=== PATIENT | female | born 1975 | race Caucasian/White ===

== ENCOUNTER → 2020-06-08 14:26 | Outpatient (BNVA) | payer OTHER, SELFPAY | PROVIDERS: Visit Provider Obstetrics & Gynecology | DX: D25.9 Leiomyoma of uterus, unspecified (principal) | CPT/HCPCS: 99202 ==

== ENCOUNTER 2020-06-22 13:30 | Outpatient (REF) | payer OTHER, SELFPAY ==
--- NOTE | 2020-06-22 13:35 | US_ITS ---
EXAMINATION: US PELVIS COMPLETE US TRANSVAGINAL CLINICAL INFORMATION: Pelvic and perineal pain. COMPARISON: None TECHNIQUE: Transabdominal and transvaginal ultrasound of the pelvis is performed. FINDINGS: The uterus is anteverted and measures 17.8 cm in length, 6.7 cm AP and 11.0 cm in transverse dimension. There are multiple hypoechoic lesions. 1. A 5.2 x 5.0 x 5.0 cm lesion in the left fundus. This fibroid is slightly hypervascular. 2. A 2.3 x 2.2 x 2.9 cm lesion in the center of the fundus. 3. Lesion in the right of the fundus measures 2.3 x 2.2 x 1.5 cm. The endometrial thickness measures 1.0 cm. The endometrium is slightly distorted from the fibroids. Imaging through the cervix reveals several small nabothian cysts. Right ovary measures 1.4 x 1.8 x 1.3 cm and volume 1.7 mL. It appears unremarkable. Left ovary is not seen. There is no free fluid in cul-de-sac. US/US transvaginal IMPRESSION: At least 3 uterine fibroids. The largest fibroid in the left fundus is hypervascular. There are several nabothian cysts in the cervix. The right ovary is unremarkable. The left ovary is not seen.
--- NOTE | 2020-06-22 13:35 | US_ITS ---
EXAMINATION: US PELVIS COMPLETE US TRANSVAGINAL CLINICAL INFORMATION: Pelvic and perineal pain. COMPARISON: None TECHNIQUE: Transabdominal and transvaginal ultrasound of the pelvis is performed. FINDINGS: The uterus is anteverted and measures 17.8 cm in length, 6.7 cm AP and 11.0 cm in transverse dimension. There are multiple hypoechoic lesions. 1. A 5.2 x 5.0 x 5.0 cm lesion in the left fundus. This fibroid is slightly hypervascular. 2. A 2.3 x 2.2 x 2.9 cm lesion in the center of the fundus. 3. Lesion in the right of the fundus measures 2.3 x 2.2 x 1.5 cm. The endometrial thickness measures 1.0 cm. The endometrium is slightly distorted from the fibroids. Imaging through the cervix reveals several small nabothian cysts. Right ovary measures 1.4 x 1.8 x 1.3 cm and volume 1.7 mL. It appears unremarkable. Left ovary is not seen. There is no free fluid in cul-de-sac. US/US pelvic complete IMPRESSION: At least 3 uterine fibroids. The largest fibroid in the left fundus is hypervascular. There are several nabothian cysts in the cervix. The right ovary is unremarkable. The left ovary is not seen.
== END 2020-06-22 13:31 | disposition home or self-care (01) ==
LOC: HO.US 13:30
PROVIDERS: PCP Internal Medicine; Visit Provider Obstetrics & Gynecology
DX: R10.2 Pelvic and perineal pain (principal); D25.9 Leiomyoma of uterus, unspecified
CPT/HCPCS: 76830; 76856

== ENCOUNTER → 2020-06-28 14:18 | Outpatient (BNVA) | payer OTHER, SELFPAY | PROVIDERS: PCP Internal Medicine; Visit Provider Obstetrics & Gynecology | DX: D25.9 Leiomyoma of uterus, unspecified (principal) | CPT/HCPCS: 99212 ==

== ENCOUNTER → 2020-07-12 13:17 | Outpatient (BNVA) | payer OTHER, SELFPAY | PROVIDERS: PCP Internal Medicine; Visit Provider Nurse Practitioner | DX: Z76.89 Persons encountering health services in other specified circumstances (principal) ==

== ENCOUNTER 2020-07-30 10:15 | Outpatient (REF) | payer OTHER, SELFPAY ==
[2020-07-30 11:19] LABS: Alanine Aminotransferase 22 U/L (0-31); Albumin Level 4.4 g/dL (3.5-5.0); Alkaline Phosphatase 57 U/L (39-117); Aspartate Amino Transferase 16 U/L (5-31); Bilirubin Direct 0.3 mg/dL (0.0-0.5); Bilirubin Total 0.7 mg/dL (0.0-1.0); Total Protein 6.6 g/dL (6.5-8.0)
[2020-07-30 11:23] LABS: Blood Urea Nitrogen 5 mg/dL (9-16); Estimated Glomerular Filt Rate > 60
[2020-07-30 11:45] LABS: HBS Num1 6.55 mIU/mL (0-7.99); HBc Num1 0.04 S/CO (0.00-0.79); HBsAGNum1 0.13 S/CO (0.00-0.99); Hepatitis A Antibody IgM 0.67 Index (0-0.79); Hepatitis B Core Antibody Nonreactive (Nonreactive); Hepatitis B Surface Antigen Negative (Negative); ~HepC Num1 0.06 S/CO (0.00-0.79); ~Hepatitis A Antibody IgM Nonreactive (Nonreactive); ~Hepatitis B Surface Antibody NONREACTIVE (Nonreactive); ~Hepatitis C Antibody Nonreactive (Nonreactive)
[2020-08-02 12:51] LABS: Alpha Fetoprotein 3.3 ng/mL
[2020-08-03 09:57] LABS: Mitochondrial Antibodies NEGATIVE (NEGATIVE)
[2020-08-04 23:36] LABS: Smooth Muscle Antibody <20 U (<20)
== END 2020-07-30 10:16 | disposition home or self-care (01) ==
LOC: HO.LAB 10:15
PROVIDERS: PCP Internal Medicine; Referring Provider Radiology Vascular & Interventional Radiology; Visit Provider Nurse Practitioner
DX: R79.89 Other specified abnormal findings of blood chemistry (principal); R94.4 Abnormal results of kidney function studies; K76.0 Fatty (change of) liver, not elsewhere classified
CPT/HCPCS: 36415; 80076; 82105; 82565; 84520; 86255; 86256; 86704; 86706; 86709; 86803; 87340

== ENCOUNTER 2020-08-02 08:33 | Outpatient (REF) | payer OTHER, SELFPAY ==
--- NOTE | 2020-08-02 08:38 | US_ITS ---
EXAMINATION: US ABDOMEN COMPLETE CLINICAL INFORMATION: Fatty (change of) liver, not elsewhere classified. COMPARISON: CT abdomen and pelvis with contrast dated 09/18/2019. Ultrasound abdomen complete dated 06/12/2019. TECHNIQUE: Real-time imaging of the abdominal viscera. FINDINGS: PANCREAS: Normal. ABDOMINAL AORTA: The proximal, mid, and distal segments are normal in caliber. INFERIOR VENA CAVA: Visualized portions are normal. LIVER: There is increased liver echogenicity. .The liver is normal in size. The liver contour is normal. No focal hepatic lesion. There is no intrahepatic biliary duct dilatation seen. GALLBLADDER: Normal. The gallbladder is physiologically distended without evidence of stones, sludge, polyps, wall thickening or pericholecystic fluid. COMMON BILE DUCT: Normal in caliber measuring 0.5 cm in diameter. RIGHT KIDNEY: Normal. No hydronephrosis. No renal calculi or focal parenchymal lesions. The kidney measures 11.9 cm in maximum dimension. LEFT KIDNEY: There are small anechoic cyst in the lower pole measuring 0.8 x 0.5 x 0.5 cm. No echogenic stones, caliectasis or hydronephrosis seen. No additional focal lesion seen. The kidney measures 11.4 cm in maximum dimension. SPLEEN: Normal. The spleen measures 11.9 cm in maximum dimension. FREE FLUID: None. US/US abdomen complete IMPRESSION: Small anechoic cyst lower pole left kidney. No echogenic stones or hydronephrosis. Mild hepatic steatosis without focal lesion. The rest of the abdominal ultrasound is unremarkable.
== END 2020-08-02 08:34 | disposition home or self-care (01) ==
LOC: HO.US 08:33
PROVIDERS: Visit Provider Nurse Practitioner
DX: K76.0 Fatty (change of) liver, not elsewhere classified (principal)
CPT/HCPCS: 76700

== ENCOUNTER 2020-08-27 06:33 | Day surgery (SDC) | payer OTHER, SELFPAY ==
--- NOTE | 2020-08-25 13:30 | P.CONAN_ITS ---
Documented by User: Makayla Mills 08/25/20 13:31 HPI - Anesthesia Eval Consult details Narrative: 45yo F for Upper Endoscopy [facility] Past Medical History Medical History Endometriosis Hx of concussion Renal cyst, left Uterine fibroid Family History Family History Father Diabetes Kidney failure Mother Cancer HTN (hypertension) Diabetes Paternal Aunt Stomach cancer Maternal Aunt Cancer Maternal Uncle Cancer Maternal Grandfather Cancer Maternal Grandmother HTN (hypertension) Surgical History Surgical History Hx of colonoscopy Social History Social History Alcohol intake: never Smoking Status: Never smoker Second Hand Smoke Exposure: Yes (secondhand exposure from grandfather when pt was younger) Use of substances other than those prescribed or required for medical reasons: No Advance Directives: No Advance Directives Information Provided: Yes Sexual orientation: Straight/Heterosexual Gender identity: female Meds Allergies Allergy/AdvReac Type Severity Reaction Status Date / Time No Known Allergies Allergy Verified 08/27/20 06:54 [No Known Allergies*] Home Medications Medication Instructions Recorded Confirmed Type dicyclomine 20 mg tablet 20 mg PO QID 07/12/20 07/12/20 History docusate sodium 100 mg capsule 100 mg PO DAILY 07/12/20 07/12/20 History magnesium oxide 500 mg capsule 500 mg PO BID 07/12/20 07/12/20 History Exam Exam Date and Time: August 25, 2020 1330 Assessment and Plan Assessment Anesthesia Assessment: Chart Reviewed Documented by User: Muriel Rogel 08/27/20 07:33 [facility] Past Medical History Medical History Endometriosis Hx of concussion Renal cyst, left Uterine fibroid Family History Family History Father Diabetes Kidney failure Mother Cancer HTN (hypertension) Diabetes Paternal Aunt Stomach cancer Maternal Aunt Cancer Maternal Uncle Cancer Maternal Grandfather Cancer Maternal Grandmother HTN (hypertension) Surgical History Surgical History Hx of colonoscopy Social History Social History Alcohol intake: never Smoking Status: Never smoker Second Hand Smoke Exposure: Yes (secondhand exposure from grandfather when pt was younger) Use of substances other than those prescribed or required for medical reasons: No Advance Directives: No Advance Directives Information Provided: Yes Sexual orientation: Straight/Heterosexual Gender identity: female Meds Allergies Allergy/AdvReac Type Severity Reaction Status Date / Time No Known Allergies Allergy Verified 08/27/20 06:54 [No Known Allergies*] Home Medications Medication Instructions Recorded Confirmed Type dicyclomine 20 mg tablet 20 mg PO QID 07/12/20 07/12/20 History docusate sodium 100 mg capsule 100 mg PO DAILY 07/12/20 07/12/20 History magnesium oxide 500 mg capsule 500 mg PO BID 07/12/20 07/12/20 History Exam Airway Mallampati Class: II TM Dist: >3cm Neck ROM: Full Loose/Missing/Broken Teeth: No Heart: RRR Lungs: CTA Assessment and Plan Assessment Anesthesia Assessment: Anesthesia Plan Discussed and Chart Reviewed Final Anesthetic Review NPO: Yes ASA Class: II Final Preanesthetic Review: Meds/Allgs Chart Reviewed, Consent Obtained/Reviewed and Anes Risks/Benef Reviewed Patient Risk: Low Procedure Risk: Intermediate Anesthetic Plan Anesthetic Plan: MAC: Disposition: Standard PACU
[2020-08-27 06:57] VITALS: BP 110/47; PULSE 58; RESP 16; TEMP 36.3; O2SAT 99; BMI 25.7
[2020-08-27 07:00] LABS: UPreg QC Valid YES; Urine Pregnancy NEGATIVE (NEGATIVE)
[2020-08-27] MEDS: Lactated Ringers 1,000 ML 100 ML IVCONT (07:03)
--- NOTE | 2020-08-27 07:23 | MHC.SHP ---
Pre-Procedural Eval Section B Chief Complaint: epigastric pain Details of Present Illness: screening, lower abdominal pain, constipation Relevant Family History (Specify if Yes): Yes Present Medications: see Short Stay Collaborative assessment Medical History: Significant History (Endometriosis, Uterine fibroid) History of Previous Operations: Relevant previous surgery/procedure and date(s) (colonoscopy) Allergies: Allergies Allergy/AdvReac Type Severity Reaction Status Date / Time No Known Allergies Allergy Verified 08/27/20 06:54 [No Known Allergies*] Review of Systems Sugical H&P ROS: Negative: Constitution, Cardiovascular and Respiratory and Yes, Specify: Gastrointestinal (dysphagia, abd pain) Exam Surgical H&P Exam: Normal: Heart, Normal: Lungs, Normal: Extremities and Normal: Abdomen Plan Diagnosis/Plan: Unchanged I have reviewed the history and physical and performed a pertinent physical examination on my patient. No changes have occurred unless specified.
--- NOTE | 2020-08-27 07:24 | W.PM.OPN ---
Operative Note Operative Note Date of Service: 08/27/20 Narrative: Pre-op diagnosis: Dysphagia, upper abdominal pain Pt reports loosing her voice at the end of the day Post-op diagnosis: other (GERD, Gastritis) Procedure: FLEXIBLE TRANSORAL UPPER GASTROINTESTINAL ENDOSCOPY WITH BIOPSIES AND ESOPHAGEAL BALLOON DILATION Consent: Indications for the procedure and potential complications of bleeding, perforation, reaction to medications and missed diagnosis were discussed with the patient and informed consent was obtained. Instrument: Olympus GIF H 190 mid size upper endoscope Monitoring: Vital signs and clinical assessment, continuous EKG monitoring, Pulse oximetry, Carbon Dioxide monitoring and blood pressure monitoring were done throughout the procedure. Procedure: The patient was placed in the left lateral decubitis position and pre-procedure medications were administered and a bite block was placed. The endoscope was inserted into the mouth and advanced under direct vision to the third part of duodenum. A careful inspection was made as the upper endoscope was withdrawn including a retroflexed examination of the proximal stomach; Findings and interventions are described below. Findings: Larynx: Edema of arytenoid cartilages Esophagus: Tortuous esophagus with increased tertiary contractions without stricture or ring - biopsies were obtained from proximal esophagus to check for EOE. GE junction at 35 cms. Minimal esophagitis with a focal 0.5 cms healing erosion. Empiric balloon dilation was performed with 19 (57 F) and 20 mm (60 F) CRE balloon x 60 seconds at each level. Stomach: Moderate diffuse gastric erythema with nodular appearing gastric mucosa in the fundus and body of stomach - biopsies were obtained. A few chronic appearing erosions in the antrum - biopsied. Grade 2 flap valve on retroflexed examination of the cardia. Duodenum: Normal bulb and descending duodenum. Biopsies were obtained from 3rd part of duodenum to check for celiac sprue. Intervention: Biopsies and balloon dilation to 60F as noted above Impression and Post Procedure Diagnosis: Endoscopy Findings: LARYNX: Changes suggestive of LPRD ESOPHAGUS: Tortuous esophagus with increased tertiary contractions without stricture or ring - biopsies were obtained from proximal esophagus to check for EOE. GE junction at 35 cms. Minimal esophagitis with a focal 0.5 cms healing erosion. Empiric balloon dilation was performed with 19 (57 F) and 20 mm (60 F) CRE balloon x 60 seconds at each level. STOMACH: Nodular gastritis with a few antral erosions DUODENUM: Normal - biopsied to check for celiac sprue. Plan: Await pathology results Patient to schedule a FU appointment in the GI Clinic with Alexsandra Estrada NP. If pt continues to have dysphagia, consider scheduling a barium swallow. Consider trail of high dose PPI for patient's laryngeal symptoms and if no improvement, refer to ENT. Above findings were reviewed with the patient and GERD and Gastritis handouts were given in the discharge area Surgeon: Jadiel Dewitt MD Anesthesia: MAC (Tara Villasenor CRNA) Estimated blood loss (mL): 0 Pathology: other (A. Small bowel, B. Gastric antrum, C. Gastric body, D. proximal esophagus) Condition: stable Disposition: PACU
[2020-08-27 08:11] VITALS: BP 101/58; PULSE 67; RESP 16; TEMP 36.1; O2SAT 98
[2020-08-27 08:26] VITALS: BP 104/62; PULSE 60; RESP 16; TEMP 36.1; O2SAT 98
--- NOTE | 2020-08-27 10:19 | HO.POSTANES ---
Post Anesthesia Evaluation Post Anesthesia Evaluation Vital Signs: Vital Signs Temp Pulse Resp BP Pulse Ox 08/27/20 08:26 97 F 60 16 104/62 98 08/27/20 08:11 97 F 67 16 101/58 L 98 08/27/20 06:57 97.3 F 58 16 110/47 L 99 Anesthesia: Monitored Mental Status: Awake Pain Control: Satisfactory Nausea/Vomiting: None Hydration: Adequate Anesthesia-Related Issues: No Anes. Related Issues
== END 2020-08-27 09:08 | disposition home or self-care (01) ==
PROVIDERS: Nurse Practitioner; PCP Internal Medicine; Visit Provider Internal Medicine Gastroenterology
PROC: 0DJ08ZZ Inspection of Upper Intestinal Tract, Via Natural or Artificial Opening Endoscopic (ICD-10-PCS; CPT 43235; principal; 2020-08-27 07:30)
DX: R13.10 Dysphagia, unspecified (principal); K22.8 Other specified diseases of esophagus; K29.70 Gastritis, unspecified, without bleeding; B96.81 Helicobacter pylori [H. pylori] as the cause of diseases classified elsewhere; K29.80 Duodenitis without bleeding; K21.9 Gastro-esophageal reflux disease without esophagitis; K59.00 Constipation, unspecified
CPT/HCPCS: 43249; 43239; 81025; 88305; 88342; C1726

== ENCOUNTER → 2020-09-10 11:43 | Outpatient (BNVA) | payer OTHER, SELFPAY | PROVIDERS: PCP Internal Medicine; Visit Provider Nurse Practitioner ==

== ENCOUNTER → 2020-10-11 10:14 | Outpatient (BNVA) | payer OTHER, SELFPAY | PROVIDERS: PCP Internal Medicine; Visit Provider Nurse Practitioner ==

== ENCOUNTER 2020-10-26 10:30 | Outpatient (REF) | payer OTHER, SELFPAY | END 2020-10-26 10:31 | disposition home or self-care (01) | LOC: HO.LNP 10:30 | PROVIDERS: Visit Provider Nurse Practitioner | DX: B96.81 Helicobacter pylori [H. pylori] as the cause of diseases classified elsewhere (principal); K27.9 Peptic ulcer, site unspecified, unspecified as acute or chronic, without hemorrhage or perforation | CPT/HCPCS: 87338 ==

== ENCOUNTER → 2020-11-23 09:20 | Outpatient (BNVA) | payer OTHER, SELFPAY | PROVIDERS: Visit Provider Nurse Practitioner ==

== ENCOUNTER 2021-08-04 18:39 | Outpatient (REF) | payer OTHER, SELFPAY ==
[2021-08-04 19:02] LABS: Appearance Urine CLEAR; Color Urine YELLOW; Glucose Urine UA NEG (NEG); Leukocyte Esterase Urine NEG (NEG); Nitrite Urine NEG (NEG); Urine Blood NEG (NEG); Urine Ketones NEG (NEG); Urine Protein NEG (NEG-TRACE)
== END 2021-08-04 18:40 | disposition home or self-care (01) ==
LOC: HO.LNP 18:39
PROVIDERS: Visit Provider Physician Assistant Medical
DX: R30.0 Dysuria (principal); R10.9 Unspecified abdominal pain
CPT/HCPCS: 81003

== ENCOUNTER 2021-08-05 12:03 | Outpatient (REF) | payer OTHER, SELFPAY ==
[2021-08-05 14:13] LABS: Alanine Aminotransferase 24 U/L (0-31); Alkaline Phosphatase 64 U/L (39-117); Anion Gap 11 (12-20); Aspartate Amino Transferase 17 U/L (5-31); Bilirubin Total 0.3 mg/dL (0.0-1.0); Blood Urea Nitrogen 8 mg/dL (9-16); Carbon Dioxide 27 mmol/L (22-29); Chloride 105 mmol/L (96-108); Estimated Glomerular Filt Rate > 60; Glucose Fasting 82 mg/dL (60-99); Potassium 4.4 mmol/L (3.3-5.1); Sodium 139 mmol/L (135-145); Total Protein 6.3 g/dL (6.5-8.0)
[2021-08-05 14:35] LABS: TSH reflex Free T4 0.81 uIU/mL (0.32-4.0)
[2021-08-11 15:21] LABS: Vitamin D 25-OH, D2 <4 ng/mL; Vitamin D 25-OH, D3 29 ng/mL; Vitamin D 25-OH, Total 29 ng/mL (30-100)
== END 2021-08-05 12:04 | disposition home or self-care (01) ==
LOC: HO.HMGCLDS 12:03
PROVIDERS: PCP Internal Medicine; Visit Provider Physician Assistant Medical
DX: R53.83 Other fatigue (principal)
CPT/HCPCS: 36415; 80053; 82306; 84443

== ENCOUNTER 2021-08-12 10:00 | Outpatient (REF) | payer OTHER, SELFPAY ==
[2021-08-12 12:25] LABS: Alanine Aminotransferase 21 U/L (0-31); Albumin Level 4.2 g/dL (3.5-5.0); Alkaline Phosphatase 66 U/L (39-117); Aspartate Amino Transferase 16 U/L (5-31); Bilirubin Direct 0.2 mg/dL (0.0-0.5); Bilirubin Total 0.3 mg/dL (0.0-1.0); Total Protein 6.7 g/dL (6.5-8.0)
[2021-08-16 08:35] LABS: Alpha Fetoprotein 3.2 ng/mL
== END 2021-08-12 10:01 | disposition home or self-care (01) ==
LOC: HO.LAB 10:00
PROVIDERS: PCP Internal Medicine; Referring Provider Internal Medicine; Visit Provider Nurse Practitioner
DX: K75.81 Nonalcoholic steatohepatitis (NASH) (principal); K27.9 Peptic ulcer, site unspecified, unspecified as acute or chronic, without hemorrhage or perforation; K59.04 Chronic idiopathic constipation; B96.81 Helicobacter pylori [H. pylori] as the cause of diseases classified elsewhere
CPT/HCPCS: 36415; 80076; 82105; 99212

== ENCOUNTER → 2021-08-15 12:16 | Outpatient (BNVA) | payer OTHER, SELFPAY | PROVIDERS: PCP Internal Medicine; Visit Provider Obstetrics & Gynecology | DX: D21.9 Benign neoplasm of connective and other soft tissue, unspecified (principal) | CPT/HCPCS: 99202 ==

== ENCOUNTER 2021-09-21 07:57 | Outpatient (REF) | payer OTHER, SELFPAY ==
--- NOTE | ~2021-09-21 | US_ITS ---
EXAMINATION: US ABDOMEN LIMITED CLINICAL INFORMATION: Nonalcoholic steatohepatitis. COMPARISON: Ultrasound abdomen complete 08/02/2020 and 06/12/2019. CT abdomen and pelvis 09/18/2019. TECHNIQUE: Real-time imaging of the right upper quadrant abdominal viscera. FINDINGS: PANCREAS: Normal. LIVER: Liver echotexture is slightly increased.. The liver is normal in size. The liver contour is normal. No focal hepatic lesion. There is no intrahepatic biliary duct dilatation seen. GALLBLADDER: Gallbladder is normal in size. There is a echogenic debris seen in the gallbladder. No definite gallstones are seen. The gallbladder wall is normal. There is no pericholecystic fluid. COMMON BILE DUCT: Normal in caliber measuring 0.3 cm in diameter. RIGHT KIDNEY: Normal. No hydronephrosis. No renal calculi or focal parenchymal lesions. The kidney measures 11.4 cm in maximum dimension. FREE FLUID: None. US/US abdomen limited IMPRESSION: Slightly echogenic liver probably representing fatty infiltration.
== END 2021-09-21 07:58 | disposition home or self-care (01) ==
LOC: HO.US 07:57
PROVIDERS: Visit Provider Nurse Practitioner
DX: K75.81 Nonalcoholic steatohepatitis (NASH) (principal)
CPT/HCPCS: 76705

== ENCOUNTER → 2021-09-26 16:03 | Outpatient (BNVA) | payer OTHER, SELFPAY | PROVIDERS: PCP Internal Medicine; Referring Provider Internal Medicine; Visit Provider Nurse Practitioner | DX: K27.9 Peptic ulcer, site unspecified, unspecified as acute or chronic, without hemorrhage or perforation (principal); K75.81 Nonalcoholic steatohepatitis (NASH); B96.81 Helicobacter pylori [H. pylori] as the cause of diseases classified elsewhere | CPT/HCPCS: 99212 ==

== ENCOUNTER → 2021-10-24 11:16 | Outpatient (REF) | payer OTHER, SELFPAY | LOC: HO.SL 11:16 | PROVIDERS: PCP Internal Medicine; Visit Provider Internal Medicine | DX: G47.30 Sleep apnea, unspecified (principal); R40.0 Somnolence; R06.83 Snoring | CPT/HCPCS: 95806 ==

== ENCOUNTER → 2022-03-02 12:57 | Outpatient (BNVA) | payer OTHER, SELFPAY | PROVIDERS: PCP Internal Medicine; Visit Provider Physician Assistant | DX: M77.01 Medial epicondylitis, right elbow (principal); M77.8 Other enthesopathies, not elsewhere classified | CPT/HCPCS: 99202 ==

== ENCOUNTER 2022-03-20 07:45 | Outpatient (REF) | payer OTHER, SELFPAY ==
--- NOTE | ~2022-03-20 | XR_ITS ---
EXAMINATION: BILATERAL KNEE X-RAY CLINICAL INFORMATION: Pain COMPARISON: None TECHNIQUE: 3 views of each knee FINDINGS: There is slight lateral tilt of patella on the sunrise view bilaterally. Bone alignment is otherwise normal. No fracture or dislocation is seen. Joint spaces are normal. There is no joint effusion. XR/XR knee RT 2V IMPRESSION: Slight lateral tilt of patella bilaterally otherwise unremarkable exam.
--- NOTE | ~2022-03-20 | XR_ITS ---
EXAMINATION: BILATERAL KNEE X-RAY CLINICAL INFORMATION: Pain COMPARISON: None TECHNIQUE: 3 views of each knee FINDINGS: There is slight lateral tilt of patella on the sunrise view bilaterally. Bone alignment is otherwise normal. No fracture or dislocation is seen. Joint spaces are normal. There is no joint effusion. XR/XR knee LT 2V IMPRESSION: Slight lateral tilt of patella bilaterally otherwise unremarkable exam.
--- NOTE | ~2022-03-20 | XR_ITS ---
EXAMINATION: BILATERAL KNEE X-RAY CLINICAL INFORMATION: Pain COMPARISON: None TECHNIQUE: 3 views of each knee FINDINGS: There is slight lateral tilt of patella on the sunrise view bilaterally. Bone alignment is otherwise normal. No fracture or dislocation is seen. Joint spaces are normal. There is no joint effusion. XR/XR knee standing BI IMPRESSION: Slight lateral tilt of patella bilaterally otherwise unremarkable exam.
== END 2022-03-20 07:46 | disposition home or self-care (01) ==
LOC: HO.HOSX 07:45
PROVIDERS: Visit Provider Physician Assistant
DX: M22.2X2 Patellofemoral disorders, left knee (principal); M22.2X1 Patellofemoral disorders, right knee
CPT/HCPCS: 73560; 73565; 99212

== ENCOUNTER → 2022-04-11 09:05 | Outpatient (BNVA) | payer OTHER, SELFPAY | PROVIDERS: PCP Internal Medicine; Referring Provider Internal Medicine; Visit Provider Nurse Practitioner | DX: K59.04 Chronic idiopathic constipation (principal); K75.81 Nonalcoholic steatohepatitis (NASH); Z86.010 Personal history of colon polyps | CPT/HCPCS: 99212 ==

== ENCOUNTER 2022-09-22 07:18 | Day surgery (SDC) | payer OTHER, SELFPAY ==
--- NOTE | 2022-09-21 13:45 | HO.ANESPROP2 ---
Documented by User: Makayla Mills NP 09/21/22 13:47 HPI - Anesthesia Eval Consult details Narrative: 47yo F for Colonoscopy PMFSH Active Problems Active Problems: All Active Problems (Updated 04/11/22 @ 12:46 by YONIS Pina) Sessile colonic polyp (Acute) Patellofemoral syndrome of left knee (Acute) Patellofemoral syndrome of right knee (Acute) Golfers elbow of right upper extremity (Acute) Pelvic pain (Acute) Vitamin D deficiency (Acute) Sleep apnea (Acute) Arthritis (Acute) Right elbow tendinitis (Acute) Chronic idiopathic constipation (Acute) Fatigue (Acute) Dysuria (Acute) Fibroids (Acute) H pylori ulcer (Acute) DURAND (nonalcoholic steatohepatitis) (Acute) Uterine fibroid (Acute) Lower abdominal pain (Acute) Urinary hesitancy (Acute) Past Medical History Medical History (Updated 04/11/22 @ 12:46 by YONIS Pina) Arthritis Constipation Endometriosis Hepatic steatosis Hx of concussion Pelvic pain Renal cyst, left Right elbow tendinitis Sleep apnea Uterine fibroid Vitamin D deficiency Family History Family History Father Diabetes Kidney failure Mother Cancer HTN (hypertension) Diabetes Paternal Aunt Stomach cancer Maternal Aunt Cancer Maternal Uncle Cancer Maternal Grandfather Cancer Maternal Grandmother HTN (hypertension) Surgical History Surgical History (Updated 09/22/22 @ 07:38 by La Salcedo) H/O tooth extraction History of esophagogastroduodenoscopy (EGD) Hx of colonoscopy Hx of hand surgery Tubal ligation status Social History Social History Alcohol intake: never Patient Tobacco Use Status: Never used Tobacco e-Cigarette/Vaping Use: Never Used Second Hand Smoke Exposure: Yes (secondhand exposure from grandfather when pt was younger) Use of substances other than those prescribed or required for medical reasons: No Are you DNR?: No Advance Directives: No Advance Directives Information Provided: Yes Current occupational status: student Current occupation: rt hand Sexual orientation: Straight/Heterosexual Gender identity: Female Meds Allergies Allergy/AdvReac Type Severity Reaction Status Date / Time No Known Allergies Allergy Verified 09/22/22 07:38 [No Known Allergies*] Home Medications Medication Instructions Recorded Confirmed Last Taken Type No Known Home Meds 09/22/22 09/22/22 Unknown History Exam Exam Date and Time: September 21, 2022 134 Pertinent Lab Results Pertinent Lab Results: Laboratory Tests 08/05/21 Sodium 139 Potassium 4.4 Chloride 105 Carbon Dioxide 27 BUN 8 L Creatinine 0.63 Assessment and Plan Assessment Anesthesia Assessment: Chart Reviewed Documented by User: Joanne Osullivan MD 09/22/22 09:10 HPI - Anesthesia Eval Consult details Narrative: 47yo F for Colonoscopy for screening personsl ho polyp chronic constipation PMFSH Past Medical History Medical History (Updated 04/11/22 @ 12:46 by YONIS Pina) Arthritis Constipation Endometriosis Hepatic steatosis Hx of concussion Pelvic pain Renal cyst, left Right elbow tendinitis Sleep apnea Uterine fibroid Vitamin D deficiency Family History Family History Father Diabetes Kidney failure Mother Cancer HTN (hypertension) Diabetes Paternal Aunt Stomach cancer Maternal Aunt Cancer Maternal Uncle Cancer Maternal Grandfather Cancer Maternal Grandmother HTN (hypertension) Family history of problems with anesthesia: No Surgical History Surgical History (Updated 09/22/22 @ 07:38 by La Salcedo) H/O tooth extraction History of esophagogastroduodenoscopy (EGD) Hx of colonoscopy Hx of hand surgery Tubal ligation status History of Problems with Anesthesia: Yes (Hard to wake up after surgery with narcotics once no overnight or ICU) Social History Social History Alcohol intake: never Patient Tobacco Use Status: Never used Tobacco e-Cigarette/Vaping Use: Never Used Second Hand Smoke Exposure: Yes (secondhand exposure from grandfather when pt was younger) Use of substances other than those prescribed or required for medical reasons: No Are you DNR?: No Advance Directives: No Advance Directives Information Provided: Yes Current occupational status: student Current occupation: rt hand Sexual orientation: Straight/Heterosexual Gender identity: Female Meds Allergies Allergy/AdvReac Type Severity Reaction Status Date / Time No Known Allergies Allergy Verified 09/22/22 07:38 [No Known Allergies*] Home Medications Medication Instructions Recorded Confirmed Last Taken Type No Known Home Meds 09/22/22 09/22/22 Unknown History Exam Airway Mallampati Class: I TM Dist: >3cm Neck ROM: Full Heart: rr Lungs: cta Assessment and Plan Assessment Anesthesia Assessment: Anesthesia Plan Discussed and Smoking Cess. Discussed Final Anesthetic Review Family History of Problems with Anesthesia: No History of Problems with Anesthesia: Yes (Hard to wake up after surgery with narcotics once no overnight or ICU) NPO: Yes ASA Class: II Final Preanesthetic Review: No Changes in Pt Med Stat, Meds/Allgs Chart Reviewed, Consent Obtained/Reviewed and Anes Risks/Benef Reviewed Patient Risk: Low Procedure Risk: Low Anesthetic Plan Anesthetic Plan: MAC: Disposition: Standard PACU
--- NOTE | 2022-09-22 07:34 | MHC.SHP ---
Pre-Procedural Eval Section A Date of Service: 09/22/22 The patient is an INPATIENT: No The History & Physical has been completed within 30 days and I have reviewed it.: No Section B Chief Complaint: Colon cancer screening, chronic constipation Details of Present Illness: Colon cancer screening Relevant Family History (Specify if Yes): Yes Relevant Social History: None Present Medications: see Short Stay Collaborative assessment Medical History: Significant History (Constipation Endometriosis Hepatic steatosis Hx of concussion Pelvic pain Renal cyst, left Right elbow tendinitis Sleep apnea Uterine fibroid Vitamin D deficiency) History of Previous Operations: Relevant previous surgery/procedure and date(s) (History of EGD, history of colonoscopy history of hand surgery) Allergies: Allergies Allergy/AdvReac Type Severity Reaction Status Date / Time No Known Allergies Allergy Verified 04/11/22 09:53 [No Known Allergies*] Review of Systems Sugical H&P ROS: Negative: Constitution, Cardiovascular, Respiratory and Gastrointestinal Exam Surgical H&P Exam: Normal: Heart, Normal: Lungs, Normal: Extremities and Normal: Abdomen Plan Diagnosis/Plan: Unchanged I have reviewed the history and physical and performed a pertinent physical examination on my patient. No changes have occurred unless specified. Time Spent With Patient Time: Total time managing care of this patient today ____ minutes.
[2022-09-22 07:39] VITALS: BMI 24.7
[2022-09-22 07:41] VITALS: BP 94/53; PULSE 51; RESP 16; TEMP 36.6; O2SAT 100
[2022-09-22] MEDS: Lactated Ringers 1,000 ML 100 ML IVCONT (07:58)
--- NOTE | 2022-09-22 08:42 | P.BOP_ITS ---
Brief Operative Note Date of Service: 09/22/22 Pre-op diagnosis: Colon cancer screening, history of colon polyps, chronic constipation Post-op diagnosis: other (Colon polyps, diverticulosis, hemorrhoids) Procedure: COLONOSCOPY TILL CECUM WITH BIOPSIES, SNARE POLYPECTOMY, SUBMUCOSAL INJECTION AND HEMOCLIP PLACEMENT Surgeon: Jadiel Dewitt MD Anesthesia: MAC Was an Grocery Shopper used for this Procedure?: Yes Grocery Shopper: Kelley Valadez Estimated blood loss (mL): 0 Pathology: other (A. polyp @ 75 cms B. sigmoid polyp) Condition: stable Disposition: PACU
--- NOTE | 2022-09-22 08:42 | W.PM.OPN ---
Operative Note Operative Note Date of Service: 09/22/22 Narrative: Pre-op diagnosis: Colon cancer screening, history of colon polyps, chronic constipation Post-op diagnosis:?other (Colon polyps, diverticulosis, hemorrhoids) Surgeon: Jadiel Dewitt MD Anesthesia:?MAC COLONOSCOPY TILL CECUM WITH BIOPSIES, SNARE POLYPECTOMY, SUBMUCOSAL INJECTION AND HEMOCLIP PLACEMENT Consent: Indications for the procedure and potential complications of bleeding, perforation, reaction to medications and missed diagnosis were discussed with the patient and informed consent was obtained. Instrument: Olympus PCF H 190 L variable stiffness pediatric colonoscope Monitoring: Vital signs and clinical assessment, intermittent blood pressure monitoring, continuous EKG monitoring, Pulse oximetry and Carbon Dioxide monitoring were done throughout the procedure. Colon withdrawl time was 19 minutes. Procedure: The patient was placed in the left lateral decubitis position and pre-procedure medications were administered. After a digital rectal examination of the ano-rectum, the video colonoscope was inserted into the rectum and advanced through the colon to the cecum. The colonoscope was slowly withdrawn in a retrograde panoramic fashion and the colon mucosa was carefully examined including a retroflexed view of the rectum. Findings and interventions are described below. Procedure Difficulty: Without difficulty Findings: Terminal Ileum: Not evaluated Cecum: Normal Ascending Colon: A 12 mm flat polyp in the mid AC at 75 cms. Polyp was raised with 5 cc of normal saline (submucosal injection) and removed with a stiff snare. Polypectomy site was closed with 1 hemoclip. Transverse Colon: Normal Descending Colon: Moderate diverticulosis Sigmoid Colon: A 4-5 mm sessile polyp removed with a cold bx. Moderate diverticulosis Rectum: Normal Ano-rectum: Small internal hemorrhoids Colon preparation: Good after some irrigation Impression and Post Procedure Diagnosis: Colonoscopy Findings: One medium sized and one small polyps removed Moderate diverticulosis seen in the left colon Small hemorrhoids on retroflexed exam. Plan: Await pathology results Patient has an appointment on 10/03/22 in the GI Clinic with Alexsandra Estrada NP. Repeat Colonoscopy interval based on path results - in 3 years if polyps are adenomatous and due to a hx of adenomatous colon polyps Above findings were reviewed with the patient and colon polyps and diverticulosis handouts were given in the discharge area
[2022-09-22 09:23] VITALS: BP 83/49; PULSE 57; RESP 16; TEMP 36.3; O2SAT 97
[2022-09-22 09:38] VITALS: BP 88/57; PULSE 50; RESP 15; O2SAT 97
== END 2022-09-22 10:15 | disposition home or self-care (01) ==
PROVIDERS: PCP Internal Medicine; Visit Provider Internal Medicine Gastroenterology
PROC: 0DJD8ZZ Inspection of Lower Intestinal Tract, Via Natural or Artificial Opening Endoscopic (ICD-10-PCS; CPT 45378; principal; 2022-09-22 08:30)
DX: Z12.11 Encounter for screening for malignant neoplasm of colon (principal); Z86.010 Personal history of colon polyps; D12.4 Benign neoplasm of descending colon; D12.5 Benign neoplasm of sigmoid colon; K57.30 Diverticulosis of large intestine without perforation or abscess without bleeding; K64.8 Other hemorrhoids; K59.04 Chronic idiopathic constipation; K75.81 Nonalcoholic steatohepatitis (NASH); N28.1 Cyst of kidney, acquired; G47.30 Sleep apnea, unspecified; E55.9 Vitamin D deficiency, unspecified; N80.9 Endometriosis, unspecified; Z98.51 Tubal ligation status
CPT/HCPCS: 45385; 45380; 45381; 88305